=== PATIENT | male | born 1970 | race Caucasian/White ===

== ENCOUNTER 2017-03-18 01:52 | Emergency (ER) | payer OTHER ==
[~2017-03-18] VITALS: Ht 180.3 cm; Wt 99.8 kg
[2017-03-18 01:56] VITALS: BP_SYST 156
--- NOTE | 2017-03-18 01:59 | NUR ---
Patient to ER bed 8 to gown for evaluation. Side rails up. Report given to RN.
--- NOTE | 2017-03-18 02:06 | NUR ---
Patient to ER C/O sudden onset of epigastric pain 7/10 non-radiating onset one hour prior to ER. Denies N/V/D/C. AAOx4, unlabored breathing, no signs of acute distress.
[2017-03-18 02:13] LABS: BILIRUBIN,URINE NEGATIVE (NEGATIVE); BLOOD, URINE NEGATIVE (NEGATIVE); CLARITY/URINE CLEAR (CLEAR); COLOR,URINE YELLOW (YELLOW); GLUCOSE,URINE NEGATIVE (NEGATIVE); KETONES,URINE NEGATIVE (NEGATIVE); LEUKOCYTE ESTERASE ,URINE NEGATIVE (NEGATIVE); NITRITE, URINE NEGATIVE (NEGATIVE); PROTEIN URINE NEGATIVE (NEGATIVE)
[2017-03-18] MEDS ORDERED: NACL 0.9% 1,000 ML IV ONE (02:19)
--- NOTE | 2017-03-18 02:20 | NUR ---
# 20 gauge angiocath placed to right ac. Use of asceptic technique. Opsite placed over site. Blood return noted. Blood for lab drawn from site. Flushed with 10 cc of normal saline. No evidence of infiltration noted. Patient tolerated well.
[2017-03-18] MEDS ORDERED: MORPHINE 4 MG/ML INJ. SYRINGE IVP ONE (02:30)
--- NOTE | 2017-03-18 02:36 | NUR ---
Patient refuses pain medications at this time. Patient educated on pain control.
[2017-03-18 02:45] LABS: BASOPHILS # (AUTO) 0.1 K/uL (0.0-0.2); BASOPHILS % (AUTO) 0.7 % (0.0-2.0); EOSINOPHILS # (AUTO) 0.3 K/uL (0.0-0.4); HEMOGLOBIN 15.8 g/dL (14.0-18.0); LYMPHOCYTES % (AUTO) 24.1 % (20.5-51.5); MEAN CORPUSCULAR HEMOGLOBIN 29 pg (27-31); MEAN CORPUSCULAR HGB CONC 33 % (32-36); MEAN CORPUSCULAR VOLUME 86 fL (79.0-98.0); MONOCYTES # (AUTO) 0.6 K/uL (0.0-1.0); MONOCYTES % (AUTO) 6.8 % (1.7-9.3); NEUTROPHILS # (AUTO) 5.5 K/uL (1.8-7.7); NEUTROPHILS % (AUTO) 64.4 % (40.0-70.0); PLATELET COUNT (AUTO) 303 K/uL (130-430); RED BLOOD CELL COUNT(AUTO) 5.55 MIL/uL (4.2-6.2); RED CELL DISTRIBUTION WIDTH 12.8 % (9.0-15.0); WHITE BLOOD COUNT (AUTO) 8.5 K/uL (4.8-10.8)
--- NOTE | 2017-03-18 02:45 | NUR ---
Patient off the unit for CT scan via wheelchair
[2017-03-18 02:52] LABS: CALCIUM 9.2 mg/dL (8.4-11.0); CREATININE 0.87 mg/dL (0.55-1.30)
[2017-03-18 02:57] LABS: ALBUMIN 4.1 g/dL (3.4-4.8); TOTAL BILIRUBIN 0.5 mg/dL (0.0-1.0)
--- NOTE | 2017-03-18 02:57 | NUR ---
Patient back from CT. Fluids infusing, no signs of infiltration. Patient declined pain medication at this time.
--- NOTE | 2017-03-18 03:48 | NUR ---
ER Kwaw at bedside discussing tests results and discharge with the patient.
[2017-03-18 04:07] VITALS: BP_SYST 131
--- NOTE | 2017-03-18 04:07 | NUR ---
Patient given written and verbal discharge instructions and verbalizes understanding. ER MD Porras discussed with patient the results and treatment provided. Patient in stable condition. ID arm band removed. IV catheter removed intact and dressing applied, no active bleeding. Patient educated on pain management and to follow up with PMD. Pain Scale 0/10. Opportunity for questions provided and answered.
== END 2017-03-18 04:07 | disposition home or self-care (01) ==
LOC: SED 01:52
DX: K30 Functional dyspepsia (principal)
CPT/HCPCS: 36415; 74176; 80053; 81003; 85025; 96360; 96361; 99285; J7030

== ENCOUNTER 2018-07-20 05:45 | Day surgery (SDC) | payer OTHER ==
[~2018-07-20] VITALS: Ht 182.9 cm; Wt 99.3 kg
[2018-07-20] MEDS ORDERED: CEFAZOLIN SOD 1 GM/ ISO 50 ML PREMIX IV ONE (07:00)
[2018-07-20] MEDS ORDERED: ROCURONIUM BROMIDE 10 MG/ML (ZEMURON) IV ONE (07:05)
[2018-07-20] MEDS ORDERED: ONDANSETRON HCL 4 MG/2 ML VIAL IVP ONE (07:05)
[2018-07-20] MEDS ORDERED: NS IRRIG SOLN 1000 ML IR ONE (07:05)
[2018-07-20] MEDS ORDERED: DEXAMETHASONE SOD PHOSPHATE 4 MG/ML VIAL IVP ONE (07:05)
[2018-07-20] MEDS ORDERED: MIDAZOLAM HCL 5 MG/5 ML VIAL IVP ONE (07:05)
[2018-07-20] MEDS ORDERED: KETOROLAC TROMETHAMINE 30 MG VIAL IVP ONE (07:05)
[2018-07-20] MEDS ORDERED: SEVOFLURANE 15 MIN GAS INH ONE (07:05)
[2018-07-20] MEDS ORDERED: fentaNYL CITRATE/PF 100 MCG/2 ML AMP IVP ONE (07:05)
[2018-07-20] MEDS ORDERED: PROPOFOL 200MG/ 20ML VIAL (DIPRIVAN) IV ONE ×2 (07:05)
[2018-07-20] MEDS ORDERED: LIDOCAINE 4% TOPICAL 50 ML BOTTLE MM ONE (07:05)
[2018-07-20] MEDS ORDERED: fentaNYL CITRATE 250 MCG/5 ML AMP IV ONE (07:05)
[2018-07-20] MEDS ORDERED: IOHEXOL 50 ML IV ONE (07:44)
[2018-07-20] MEDS ORDERED: LR 1,000 ML IV SCH (08:23)
[2018-07-20] MEDS ORDERED: HYDROmorphone 1 MG INJ. 1 MG/ML AMPUL IVP PRN ×2 (08:30→09:00)
[2018-07-20] MEDS ORDERED: HYDROmorphone 2 MG/ML VIAL IVP PRN ×2 (08:30)
[2018-07-20] MEDS ORDERED: MEPERIDINE HCL/PF 25 MG/ML DISP.SYRIN IVP PRN (08:30)
[2018-07-20] MEDS ORDERED: D5/0.45 NS 1,000 ML IV SCH (08:46)
[2018-07-20] MEDS ORDERED: HYDROcodone/ACETAMIN 5-325 MG TAB (NORCO/ VICODIN) PO PRN ×2 (09:00)
[2018-07-20 09:53] VITALS: BP_SYST 134
== END 2018-07-20 12:05 | disposition home or self-care (01) ==
LOC: SMU 05:45 → SDS 05:45
PROVIDERS: ATTEND Colon & Rectal Surgery
DX: K80.10 Calculus of gallbladder with chronic cholecystitis without obstruction (principal); M54.5 Low back pain; E11.9 Type 2 diabetes mellitus without complications; Z98.890 Other specified postprocedural states; Z79.899 Other long term (current) drug therapy; Z80.0 Family history of malignant neoplasm of digestive organs; Z68.30 Body mass index [BMI] 30.0-30.9, adult; E66.9 Obesity, unspecified
CPT/HCPCS: 47563; 74300; 88304; C1727; C1758; J0690; J1100; J1885; J2250; J2405; J2704; J3010 ×2; J7120; Q9967; 76000